=== PATIENT | female | born 1955 | race Caucasian/White ===

== ENCOUNTER 2021-07-18 19:21 | Inpatient (IN) ==
[2021-07-18] MEDS ORDERED: MAGNESIUM SULFATE 8.12 MEQ/2 ML VIAL IV ONE (19:52)
--- NOTE | 2021-07-18 20:06 | Emergency Department Note ---
HPI General Chief complaint: Weakness Stated complaint: weakness Time Seen by Provider: 07/18/21 19:50 Source: patient Mode of arrival: wheelchair Limitations: no limitations History of Present Illness HPI Narrative: Narrative: 66-year-old female history of chronic alcohol dependence, CHF, paroxysmal A. fib, type 2 diabetes, hypertension hyperlipidemia presenting to the ED feeling tremulous and anxious. Her home health aide was concerned that she might be in A. fib again. Patient denies any chest pain. Does get occasional palpitations. No shortness of breath. She is a daily drinker. She says she drinks 2 "tall boys" of beer a day. The last 2 to 3 days she has drank less than her typical amount, most recent drink was this morning she had just a little more than 1. She feels anxious and shaky. She says her appetite has been down and she really has not ate or drank anything for the last couple days. Feels like her previous alcohol withdrawal. Has nausea no vomiting. She has no fevers, no URI symptoms, no chest pain, no abdominal pain no urinary symptoms no other complaints. Related Data Home Medications Medication Instructions Recorded Confirmed atorvastatin 20 mg tablet 20 mg PO QDAY 10/17/17 07/18/21 ipratropium 20 mcg-albuterol 100 2 puff INHALATION BID g 10/17/17 07/19/20 mcg/actuation mist for inhalation (Combivent Respimat) buspirone 7.5 mg tablet 7.5 mg PO BID 07/18/21 07/18/21 diltiazem HCl 240 mg 240 mg PO QDAY 07/18/21 07/18/21 capsule,extended release 24 hr duloxetine 60 mg capsule,delayed 60 mg PO QDAY 07/18/21 07/18/21 release gabapentin 300 mg capsule 300 mg PO QDAY 07/18/21 07/18/21 metoprolol succinate 25 mg 25 mg PO QDAY 07/18/21 07/18/21 tablet,extended release 24 hr pantoprazole 40 mg tablet,delayed 40 mg PO QDAY 07/18/21 07/18/21 release potassium chloride 10 mEq 10 meq PO QDAY 07/18/21 07/18/21 tablet,extended release Allergies Allergy/AdvReac Type Severity Reaction Status Date / Time Penicillins Allergy Severe Hives, Verified 07/18/21 19:26 facial swelling Amoxicillin Allergy Unknown Unknown Verified 07/18/21 19:26 Review of Systems ROS ROS Narrative: Narrative: All systems ED: reviewed and negative except as stated. [facility] Narrative Patient History Narrative: Narrative: Medical/Surgical/Family History All Active Problems Alcohol withdrawal (Acute) Acute hyponatremia (Acute) Electrolyte disturbance (Acute) Prolonged QT interval (Acute) Acute dehydration (Acute) Weakness (Acute) Alcoholic intoxication (Acute) Asterixis (Chronic) Tachycardia (Chronic) Loose bowel movements (Chronic) Irritable (Chronic) Shaking (Chronic) Hyperabduction syndrome (Chronic) History of skin cancer (Chronic) Actinic keratosis (Chronic) Fracture, ribs (Chronic) Diarrhea (Chronic) Edema (Chronic) Congenital malposition of subclavian artery (Chronic) Steatosis of liver (Chronic) CHF (congestive heart failure) (Chronic) Atrial fibrillation (Chronic) Mitral valve regurgitation (Chronic) Nicotine dependence (Chronic) Vitamin D deficiency (Chronic) Goiter (Chronic) Alcohol abuse (Chronic) Deltoid tendonitis (Chronic) Brachial neuritis (Chronic) Fatigue (Chronic) Anxiety (Chronic) Environmental allergies (Chronic) Dyspnea on exertion (Chronic) Chronic osteoarthritis (Chronic) Asthma (Chronic) Raynaud's phenomenon (Chronic) Essential hypertension (Chronic) Hyperlipidemia (Chronic) Type 2 diabetes mellitus without complication (Chronic) Hypothyroidism (Chronic) Squamous cell carcinoma of skin (Chronic) Medical History Actinic keratosis Alcohol abuse Anxiety Asterixis Asthma Atrial fibrillation Brachial neuritis shoulder injury CHF (congestive heart failure) Chronic osteoarthritis Congenital malposition of subclavian artery Deltoid tendonitis Diarrhea Dyspnea on exertion Edema Environmental allergies Essential hypertension Fatigue Fracture, ribs Goiter 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 Hyperlipidemia Hypothyroidism Irritable Loose bowel movements Mitral valve regurgitation Nicotine dependence Raynaud's phenomenon Shaking Squamous cell carcinoma of skin Steatosis of liver Tachycardia Type 2 diabetes mellitus without complication Vitamin D deficiency Surgical History History of cholecystectomy History of hysterectomy (~03/05/19) History of shoulder surgery History of tonsillectomy Family History Mother Migraine Sister Migraine Social History Smoking Status: Current every day smoker Alcohol Intake Frequency: 0-2 drinks per day Substance Use: does not use Exam Narrative Narrative: Narrative: Constitutional: normally developed, anxious tremulous Head: Normocephalic, atraumatic, Eyes: No Icterus, ENT: Dry mucus membranes, Neck: Supple, Cardiac: Tachycardic regular heart sounds, palpable radial pulses, no peripheral edema Pulmonary: Normal respiratory effort. Breath sounds clear, no wheeze, rhonchi, rales, Gastrointestinal: Abdomen soft, non-distended, non-tender, Musculoskeletal: No gross deformities, well perfused Skin: warm, dry Neuro: Alert and oriented, patient has mild tongue fasciculations, she is tremulous appearing. She is not disoriented no seizure-like activity no focal deficits General Limitations: no limitations Course Vital Signs Vital signs: Vital Signs Temperature 36.7 C 07/18/21 19:23 Pulse Rate 110 H 07/18/21 19:23 Respiratory Rate 17 07/18/21 19:23 Blood Pressure 111/66 07/18/21 19:23 Pulse Oximetry (%) 92 07/18/21 19:23 Temperature 37.1 C 07/19/21 00:01 Pulse Rate 95 H 07/19/21 00:01 Respiratory Rate 25 H 07/19/21 00:01 Blood Pressure 105/52 07/19/21 00:01 Pulse Oximetry (%) 92 07/19/21 00:01 [facility] MDM Narrative Medical decision making narrative: Narrative: Patient sent in for tremulousness and some tachycardia, the home health aide that stopped by thought perhaps she might be in A. fib. On my examination she is tremulous and appears to be in some alcohol withdrawal, she is oriented, she is tachycardic but it is sinus on the monitor. She appears dry, work-up is initiated initially given some IV fluids. Given IV Ativan 1 mg. Given thiamine, folic acid Twelve-lead EKG sinus tachycardia 104 no evidence of afib, no STEMI criteria. Does have nonspecific repolarization abnormalities and does have a prolonged QTC calculated at 523. I am suspicious for electrolyte disturbance. Given prolonged QT did give her some IV mag sulfate, labs pending Reevaluation tachycardia slowly improving and tremors improving we will give her 1 more milligram Ativan CBC no leukocytosis no anemia Electrolytes show a hyponatremia hypochloremia hypokalemia, normal renal function magnesium 2.1 Ethanol slightly elevated 0.028 Troponin negative Chest x-ray per my preliminary interpretation no obvious acute abnormalities [id number] urine negative for infection Reevaluation presentation consistent with some alcohol withdrawal as well as multiple electrolyte derangements, along with a prolonged QTC and also appears dehydrated. Did switch her from LR to some slow normal saline once lytes resulted. Will speak with hospitalist for admission. Lab Data Result diagrams: 07/18/21 20:42 07/18/21 20:01 Labs: Lab Results 07/18/21 07/18/21 07/18/21 Range/Units 20:01 20:01 20:01 WBC TNP RBC TNP Hgb TNP Hct TNP MCV TNP MCH TNP MCHC TNP RDW TNP Plt Count TNP MPV TNP Neut % (Auto) TNP Lymph % (Auto) TNP [place] % (Auto) TNP Eos % (Auto) TNP Baso % (Auto) TNP Lymph # (Auto) TNP [place] # (Auto) TNP Eos # (Auto) TNP Baso # (Auto) TNP Absolute Neutrophils TNP Differential Comment TNP Sodium 122 L (133-145) mmol/L Potassium 3.2 L (3.3-5.1) mmol/L Chloride 79 L (96-108) mmol/L Carbon Dioxide 28 (22-30) mmol/L Anion Gap 15.0 (8.0-16.0) BUN 7 L (8-23) mg/dL Creatinine 0.4 L (0.6-1.1) mg/dL GFR Calculation 109 Glucose 103 (70-105) mg/dL Calcium 8.8 (8.6-10.4) mg/dL Magnesium 2.1 (1.6-2.5) mg/dL Ethyl Alcohol 0.028 H (<0.010) gm/dL POC Troponin I (0.02-0.08) 07/18/21 07/18/21 Range/Units 20:05 20:42 WBC 6.9 RBC 4.00 Hgb 13.8 Hct 39.5 MCV 98.8 MCH 34.5 H MCHC 34.9 RDW 13.4 Plt Count 252 MPV 9.2 Neut % (Auto) 72.3 Lymph % (Auto) 13.9 L [place] % (Auto) 13.4 H Eos % (Auto) 0.1 Baso % (Auto) 0.3 Lymph # (Auto) 0.96 L [place] # (Auto) 0.93 H Eos # (Auto) 0.01 Baso # (Auto) 0.02 Absolute Neutrophils 5.01 Differential Comment Sodium (133-145) mmol/L Potassium (3.3-5.1) mmol/L Chloride (96-108) mmol/L Carbon Dioxide (22-30) mmol/L Anion Gap (8.0-16.0) BUN (8-23) mg/dL Creatinine (0.6-1.1) mg/dL GFR Calculation Glucose (70-105) mg/dL Calcium (8.6-10.4) mg/dL Magnesium (1.6-2.5) mg/dL Ethyl Alcohol (<0.010) gm/dL POC Troponin I 0.02 (0.02-0.08) ED POC Tests ED POC Tests: SHIV - SARS Antigen Negative Discharge Plan Patient/Caregiver Discharge Instructions Pt seen by TELEGRAPHER AGENT/PA only: No Clinical Impression: Alcohol withdrawal, Acute hyponatremia, Electrolyte disturbance, Prolonged QT interval, Acute dehydration Patient Disposition: Xfer As Inpt ([facility]) Condition: Fair Discharge Date/Time: 07/18/21 22:43
[2021-07-18] MEDS ORDERED: MAGNESIUM SULFATE 8.12 MEQ in DEXTROSE 5% IN WATER 50 ML IV ONE (20:11)
[2021-07-18 20:50] LABS: Alcohol,Blood 0.028 gm/dL (<0.010)
[2021-07-18] MEDS ORDERED: FOLIC ACID 1 MG TABLET PO ONE (21:00)
[2021-07-18] MEDS ORDERED: THIAMINE 100 MG/ML VIAL IM ONE (21:00)
[2021-07-18 21:01] LABS: Blood Urea Nitrogen 7 mg/dL (8-23); Calcium 8.8 mg/dL (8.6-10.4); Carbon Dioxide 28 mmol/L (22-30); Chloride 79 mmol/L (96-108); Glomerular Filtration Rate 109; Glucose 103 mg/dL (70-105)
[2021-07-18] MEDS ORDERED: LACTATED RINGERS 1,000 ML IV ONE (21:01)
[2021-07-18] MEDS ORDERED: LORazepam 2 MG/ML VIAL IV ONE ×2 (21:01→21:40)
[2021-07-18 21:10] LABS: Basophils # (Auto) 0.02 K/mcL (0.00-0.30); Basophils % (Auto) 0.3 % (0.0-2.0); Eosinophils # (Auto) 0.01 K/mcL (0.00-0.70); Eosinophils % (Auto) 0.1 % (0.0-7.0); Hematocrit 39.5 % (34.1-44.9); Hemoglobin 13.8 g/dL (11.2-15.7); Lymphocytes # (Auto) 0.96 K/mcL (1.50-4.80); Lymphocytes % (Auto) 13.9 % (15.5-49.0); Mean Cell Volume 98.8 fL (80.0-100.0); Mean Corpuscular HGB Conc 34.9 g/dL (31.0-36.0); Mean Platelet Volume 9.2 fL (7.4-10.4); Monocytes # (Auto) 0.93 K/mcL (0.10-0.90); Monocytes % (Auto) 13.4 % (1.0-12.0); Neutrophils % (Auto) 72.3 % (38.0-78.0); Platelet Count 252 K/mcL (140-440); Red Cell Distribution Width 13.4 % (11.5-14.5); WBC 6.9 K/mcL (4.5-11.0)
[2021-07-18] MEDS ORDERED: THIAMINE 100 MG in 0.9 % SODIUM CHLORIDE 50 ML IV ONE (21:23)
[2021-07-18] MEDS ORDERED: POTASSIUM CHLORIDE 20 MEQ TABLET PO ONE (21:32)
[2021-07-18] MEDS ORDERED: 0.9 % SODIUM CHLORIDE 500 ML IV ONE (21:39)
--- NOTE | 2021-07-18 22:19 | Internal Med History&Physical ---
HPI History of Present Illness Patient information: Note initiated : 07/18/21 at 10:14 pm Service Date, if different from initiated Date: [as above] Patient: Arya Mercado a 66 y/o F admitted on for weakness. Chief Complaint: [Weakness, ALOC] Chief complaint: Weakness, tremors History of present illness: Ms. Mercado is a 66 year old F with a past medical history significant for EtOH abuse, hypertension, hyperlipidemia, neuropathy who presents to the hospital with generalized weakness in the setting of alcoholism. The patient's niece was at the bedside to give the majority of the history. The patient was somnolent, tremulous, and has not been eating or drinking. She is quite debilitated and there is concerns for failure to thrive. On arrival, she was hemodynamically stable and afebrile. Labs revealed a sodium of 122, K of 3.2, AST of 173, and ALT of 87. Blood alcohol level was 0.028. The patient was hospitalized for further management and evaluation of her electrolyte derangements and the possibility of alcohol withdrawal. It is unclear at this time whether patient has intentions of alcohol cessation. Review of Systems ROS unobtainable: due to mental status PFSH PFSH All Active Problems Alcohol withdrawal (Acute) Acute hyponatremia (Acute) Electrolyte disturbance (Acute) Prolonged QT interval (Acute) Acute dehydration (Acute) Weakness (Acute) Alcoholic intoxication (Acute) Asterixis (Chronic) Tachycardia (Chronic) Loose bowel movements (Chronic) Irritable (Chronic) Shaking (Chronic) Hyperabduction syndrome (Chronic) History of skin cancer (Chronic) Actinic keratosis (Chronic) Fracture, ribs (Chronic) Diarrhea (Chronic) Edema (Chronic) Congenital malposition of subclavian artery (Chronic) Steatosis of liver (Chronic) CHF (congestive heart failure) (Chronic) Atrial fibrillation (Chronic) Mitral valve regurgitation (Chronic) Nicotine dependence (Chronic) Vitamin D deficiency (Chronic) Goiter (Chronic) Alcohol abuse (Chronic) Deltoid tendonitis (Chronic) Brachial neuritis (Chronic) Fatigue (Chronic) Anxiety (Chronic) Environmental allergies (Chronic) Dyspnea on exertion (Chronic) Chronic osteoarthritis (Chronic) Asthma (Chronic) Raynaud's phenomenon (Chronic) Essential hypertension (Chronic) Hyperlipidemia (Chronic) Type 2 diabetes mellitus without complication (Chronic) Hypothyroidism (Chronic) Squamous cell carcinoma of skin (Chronic) Medical History Actinic keratosis Alcohol abuse Anxiety Asterixis Asthma Atrial fibrillation Brachial neuritis shoulder injury CHF (congestive heart failure) Chronic osteoarthritis Congenital malposition of subclavian artery Deltoid tendonitis Diarrhea Dyspnea on exertion Edema Environmental allergies Essential hypertension Fatigue Fracture, ribs Goiter 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 Hyperlipidemia Hypothyroidism Irritable Loose bowel movements Mitral valve regurgitation Nicotine dependence Raynaud's phenomenon Shaking Squamous cell carcinoma of skin Steatosis of liver Tachycardia Type 2 diabetes mellitus without complication Vitamin D deficiency Surgical History History of cholecystectomy History of hysterectomy (~03/05/19) History of shoulder surgery History of tonsillectomy Family History Mother Migraine Sister Migraine Social History household members: other details: Elderly mother, brother marital status: single occupational status: retired smoking status: Current every day smoker tobacco type: cigarettes per day: 20 p ack-years: 51 alcohol intake frequency: 0-2 drinks per day substance use type: does not use MEDS/ALLERGIES Home Medications and Allergies Home Medications Medication Instructions Recorded Confirmed Type atorvastatin 20 mg tablet 20 mg PO QDAY 10/17/17 07/18/21 History ipratropium 20 mcg-albuterol 100 2 puff INHALATION BID g 10/17/17 07/19/20 History mcg/actuation mist for inhalation (Combivent Respimat) buspirone 7.5 mg tablet 7.5 mg PO BID 07/18/21 07/18/21 History diltiazem HCl 240 mg 240 mg PO QDAY 07/18/21 07/18/21 History capsule,extended release 24 hr duloxetine 60 mg capsule,delayed 60 mg PO QDAY 07/18/21 07/18/21 History release gabapentin 300 mg capsule 300 mg PO QDAY 07/18/21 07/18/21 History metoprolol succinate 25 mg 25 mg PO QDAY 07/18/21 07/18/21 History tablet,extended release 24 hr pantoprazole 40 mg tablet,delayed 40 mg PO QDAY 07/18/21 07/18/21 History release potassium chloride 10 mEq 10 meq PO QDAY 07/18/21 07/18/21 History tablet,extended release Allergies Allergy/AdvReac Type Severity Reaction Status Date / Time Penicillins Allergy Severe Hives, Verified 07/18/21 19:26 facial swelling Amoxicillin Allergy Unknown Unknown Verified 07/18/21 19:26 EXAM Constitutional Vitals: Temp Pulse Resp BP Pulse Ox 98.1 F 100 H 21 129/63 94 07/18/21 19:23 07/18/21 21:46 07/18/21 22:01 07/18/21 22:01 07/18/21 21:46 General appearance: average body habitus Head Head exam: Present atraumatic, normal inspection and normocephalic Eye Eye exam: Present EOMI, normal appearance and PERRL; Absent conjunctival injection ENT ENT exam: Present normal exam; Absent mucous membranes dry Neck Neck exam: Present full ROM; Absent lymphadenopathy Respiratory Respiratory exam: Present normal respiratory exam and CTAB; Absent decreased breath sounds, respiratory distress or wheezes Cardiovascular Cardiovascular exam: Present RRR and tachycardia; Absent normal rate and rhythm or JVD GI/Abdominal GI/Abdominal exam: Present normal bowel sounds and soft; Absent diminished bowel sounds, distended, guarding, mass, rebound or tenderness Neurological Exam Neurological exam: Present alert, CN II-XII intact and oriented X3 Psychiatric Psychiatric exam: Present normal affect and normal mood Skin Skin exam: Present intact and warm; Absent erythema, pallor, petechiae or rash DATA Data Completed and Pending Labs: Labs from last 24 hours 07/18/21 07/18/21 07/18/21 20:42 20:05 20:01 WBC 6.9 RBC 4.00 Hgb 13.8 Hct 39.5 MCV 98.8 MCH 34.5 H MCHC 34.9 RDW 13.4 Plt Count 252 MPV 9.2 Neut % (Auto) 72.3 Lymph % (Auto) 13.9 L [place] % (Auto) 13.4 H Eos % (Auto) 0.1 Baso % (Auto) 0.3 Lymph # (Auto) 0.96 L [place] # (Auto) 0.93 H Eos # (Auto) 0.01 Baso # (Auto) 0.02 Absolute Neutrophils 5.01 Differential Comment Sodium Potassium Chloride Carbon Dioxide Anion Gap BUN Creatinine GFR Calculation Glucose Calcium Magnesium Ethyl Alcohol 0.028 H POC Troponin I 0.02 07/18/21 07/18/21 20:01 20:01 WBC TNP RBC TNP Hgb TNP Hct TNP MCV TNP MCH TNP MCHC TNP RDW TNP Plt Count TNP MPV TNP Neut % (Auto) TNP Lymph % (Auto) TNP [place] % (Auto) TNP Eos % (Auto) TNP Baso % (Auto) TNP Lymph # (Auto) TNP [place] # (Auto) TNP Eos # (Auto) TNP Baso # (Auto) TNP Absolute Neutrophils TNP Differential Comment TNP Sodium 122 L Potassium 3.2 L Chloride 79 L Carbon Dioxide 28 Anion Gap 15.0 BUN 7 L Creatinine 0.4 L GFR Calculation 109 Glucose 103 Calcium 8.8 Magnesium 2.1 Ethyl Alcohol POC Troponin I A/P Assessment and plan (1) Alcohol withdrawal: Status: Acute (2) Acute hyponatremia: Status: Acute (3) Electrolyte disturbance: Status: Acute (4) Prolonged QT interval: Status: Acute (5) Acute dehydration: Status: Acute (6) Weakness: Status: Acute (7) Steatosis of liver: Status: Chronic Narrative A/P Narrative: The patient will be started on intravenous fluids for her hypovolemic hyponatremia and her potassium will be replaced. This is likely in the setting of beer potomania. The patient's alcohol withdrawal will be managed by standard [facility] protocol. Social work will be consulted in the morning for chemical dependency counseling. Medication reconciliation is pending. In the setting of altered mental status, her duloxetine and gabapentin will be held. Social work and case management will work on disposition as well. Time Spent With Patient Time: Total time spent is greater than 50% in coordination of care (as documented) at patient's floor/unit and/or counseling patient: Total time spent with greater than 50% in coordination of care (as documented) at patient's floor/unit and/or counseling patient:: 50 - 70 minutes
[2021-07-18] MEDS: 0.9 % SODIUM CHLORIDE 1,000 ML IV SCH (23:16)
[2021-07-18] MEDS: 0.9 % SODIUM CHLORIDE 10 ML SYRINGE IV SCH (23:17)
--- NOTE | 2021-07-19 04:25 | XRay Report ---
CLINICAL INFORMATION: Weakness. History of smoking COMPARISON: None. TECHNIQUE: PA and Lateral views FINDINGS: The heart size, mediastinum and pulmonary vessels are unremarkable. The lung volumes are elevated is mild wall thickening the central bronchi suggesting chronic bronchitis related to smoking. Minor bibasilar atelectasis noted. No infiltrates There are no effusions. The bones and soft tissues are within normal limits. IMPRESSION: Chronic bronchitis.. Minor bibasilar atelectasis Interpreted and Authenticated by: Fernando Reyes 07/19/21
[2021-07-19] MEDS: 0.9 % SODIUM CHLORIDE 10 ML SYRINGE IV SCH ×3 (06:07→20:44)
[2021-07-19] MEDS: 0.9 % SODIUM CHLORIDE 1,000 ML IV SCH ×4 (06:07→16:27)
--- NOTE | 2021-07-19 06:16 | Internal Med Progress Note ---
SUBJECTIVE Subjective Patient information: Note initiated : 07/19/21 at 6:14 am Service Date, if different from initiated Date: [as above] Patient: Arya Mercado 66 y/o F admitted on 07/18/21 for weakness. Chief Complaint: [ALOC, weakness] Principal diagnosis: HypoNa, EtOH withdrawal Interval history: The patient was admitted last night, and she is somewhat confused and somnolent this AM. Constitutional Vitals: Vital Signs Temp Pulse Resp BP Pulse Ox 97.7 F 104 H 19 126/68 97 07/19/21 04:01 07/19/21 04:01 07/19/21 04:01 07/19/21 04:01 07/19/21 04:01 Period Temp Pulse Resp BP Sys/Babin Pulse Ox Last 24 Hr 97.7 F-98.7 F 95-123 17-26 105-144/52-84 90-97 Intake and Output 07/18/21 07/19/21 07/19/21 21:59 05:59 13:59 Intake Total 203 250 Output Total 1 Balance 203 249 Weight 74.389 kg 74.389 kg Intake & Output: Intake & Output 07/18/21 07/19/21 07/19/21 21:59 05:59 13:59 Intake Total 203 250 Output Total 1 Balance 203 249 Weight 74.389 kg 74.389 kg Intake: IV 203 250 Sodium Chloride 0.9% 500 ml @ 250 Wide Open IV BOLUS ONE Rx#: [id number] Lactated Ringers 1,000 ml @ 100 Wide Open IV BOLUS ONE Rx#: [id number] Magnesium Sulfate 8.12 Meq In 52 Dextrose 5% in Water 50 ml @ 52 mls/hr IV ONCE ONE Rx#: [id number] Vitamin B1 100 mg In Sodium 51 Chloride 0.9% 50 ml @ 50 mls/hr IV ONCE ONE Rx#:[id number] Output: # of times incontinent of urine 1 Head Head exam: Present atraumatic and normal inspection Eye Eye exam: Present normal appearance ENT ENT exam: Present mucous membranes moist, normal exam and normal external ear exam Neck Neck exam: Present normal inspection Respiratory Respiratory exam: Present normal respiratory exam Cardiovascular Cardiovascular exam: Present normal rate and rhythm GI/Abdominal GI/Abdominal exam: Present normal bowel sounds Back Exam Back exam: Present normal inspection Neurological Exam Neurological exam: Present alert and altered Skin Skin exam: Present intact and warm OBJ DATA Labs CBC & Chem 7: 07/18/21 20:42 07/18/21 20:01 Labs: Abnormal Lab Results 07/18/21 07/18/21 07/18/21 20:42 20:01 20:01 MCH 34.5 H Lymph % (Auto) 13.9 L [place] % (Auto) 13.4 H Lymph # (Auto) 0.96 L [place] # (Auto) 0.93 H Sodium 122 L Potassium 3.2 L Chloride 79 L BUN 7 L Creatinine 0.4 L Ethyl Alcohol 0.028 H Meds: Medications Docusate Sodium (Docusate Sodium 100 Mg Capsule) 100 mg PO BID DEMIAN Enoxaparin Sodium (Enoxaparin 40 Mg/0.4 Ml Syringe) 40 mg SQ DAILY DEMIAN Sodium Chloride (Sodium Chloride 0.9%) 1,000 mls @ 125 mls/hr IV .Q8H [facility] Last Admin: 07/19/21 06:07 Dose: Not Given Documented by: Lorazepam (Lorazepam 2 Mg/Ml Vial) 0 mg IV Q2-4HP PRN; Protocol PRN Reason: Alcohol Withdrawal Senna (Sennosides 1 Tablet) 2 tab PO HS DEMIAN Sodium Chloride (0.9 % Sodium Chloride 10 Ml Syringe) 10 ml IV Q8 [facility] Last Admin: 07/19/21 06:07 Dose: 10 ml Documented by: A/P Assessment and plan (1) Alcohol withdrawal: Status: Acute (2) Acute hyponatremia: Status: Acute (3) Electrolyte disturbance: Status: Acute (4) Prolonged QT interval: Status: Acute (5) Acute dehydration: Status: Acute (6) Weakness: Status: Acute (7) Steatosis of liver: Status: Chronic Narrative A/P Narrative: The patient will be started on intravenous fluids for her hypovolemic hyponatremia and her potassium will be replaced. This is likely in the setting of beer potomania. The patient's alcohol withdrawal will be managed by standard [facility] protocol. Social work will be consulted in the morning for chemical dependency counseling. Medication reconciliation is pending. In the setting of altered mental status, her duloxetine and gabapentin will be held. Social work and case management will work on disposition as well. 07/19: BMP is pending. Continue IVF and CIWA protocol at this time. SW for CD counseling. SW/CM will work on dispo in the coming days. Time Spent With Patient Time: Total time spent is greater than 50% in coordination of care (as documented) at patient's floor/unit and/or counseling patient: Total time spent with greater than 50% in coordination of care (as documented) at patient's floor/unit and/or counseling patient:: 25 - 35 minutes
[2021-07-19 07:59] LABS: Blood Urea Nitrogen 5 mg/dL (8-23); Calcium 7.9 mg/dL (8.6-10.4); Carbon Dioxide 29 mmol/L (22-30); Chloride 89 mmol/L (96-108); Glomerular Filtration Rate 137; Glucose 96 mg/dL (70-105)
[2021-07-19] MEDS ORDERED: POTASSIUM CHLORIDE 20 MEQ TABLET PO ONE ×2 (08:00→12:00)
[2021-07-19] MEDS: DOCUSATE SODIUM 100 MG CAPSULE PO SCH ×2 (09:06→20:43)
[2021-07-19] MEDS: ENOXAPARIN 40 MG/0.4 ML SYRINGE SQ SCH (09:18)
[2021-07-19] MEDS: LORazepam 2 MG/ML VIAL IV PRN ×2 (13:22→20:53)
--- NOTE | 2021-07-19 13:22 | Internal Med Progress Note ---
SUBJECTIVE Subjective Patient information: Note initiated : 07/19/21 at 1:18 pm Service Date, if different from initiated Date: [] Patient: Arya Mercado a 66 y/o F admitted on 07/18/21 for weakness. Chief Complaint: [] Principal diagnosis: HypoNa, EtOH withdrawal Interval history: History of present illness: Ms. Mercado is a 66 year old F with a past medical history significant for EtOH abuse, hypertension, hyperlipidemia, neuropathy who presents to the hospital with generalized weakness in the setting of alcoholism. The patient's niece was at the bedside to give the majority of the history. The patient was somnolent, tremulous, and has not been eating or drinking. She is quite debilitated and there is concerns for failure to thrive. On arrival, she was hemodynamically stable and afebrile. Labs revealed a sodium of 122, K of 3.2, AST of 173, and ALT of 87. Blood alcohol level was 0.028. The patient was hospitalized for further management and evaluation of her electrolyte derangements and the possibility of alcohol withdrawal. It is unclear at this time whether patient has intentions of alcohol cessation. 07/19 The patient was admitted last night, and she is somewhat confused and somnolent this AM. 07/20 Constitutional Vitals: Vital Signs Temp Pulse Resp BP Pulse Ox 99.1 F H 104 H 23 H 117/65 93 07/19/21 11:57 07/19/21 04:01 07/19/21 11:57 07/19/21 11:57 07/19/21 11:57 Period Temp Pulse Resp BP Sys/Babin Pulse Ox Last 24 Hr 97.7 F-99.1 F 95-123 17-26 105-144/52-84 90-97 Intake and Output 07/18/21 07/19/21 07/19/21 21:59 05:59 13:59 Intake Total 183 761 9470 Output Total 1 2 Balance 073 977 6993 Weight 74.389 kg 74.389 kg Intake & Output: Intake & Output 07/18/21 07/19/21 07/19/21 21:59 05:59 13:59 Intake Total 718 839 0177 Output Total 1 2 Balance 169 870 9645 Weight 74.389 kg 74.389 kg Intake: IV 634 591 3362 Sodium Chloride 0.9% 1,000 ml @ 1612 125 mls/hr IV .Q8H [facility] Rx#: [id number] Sodium Chloride 0.9% 500 ml @ 250 Wide Open IV BOLUS ONE Rx#: [id number] Lactated Ringers 1,000 ml @ 100 Wide Open IV BOLUS ONE Rx#: [id number] Magnesium Sulfate 8.12 Meq In 52 Dextrose 5% in Water 50 ml @ 52 mls/hr IV ONCE ONE Rx#: [id number] Vitamin B1 100 mg In Sodium 51 Chloride 0.9% 50 ml @ 50 mls/hr IV ONCE ONE Rx#:[id number] Oral 1320 Output: # of times incontinent of urine 1 2 Other: Meal Breakfast Percent of Meal Consumed 100% Feeding Ability Independent Exam: General: Alert, Awake, No acute Distress Eyes/N/T: EOMI, Head/Neck: neck supple, CV: RRR, No murmurs, normal s1/s2 Pulm: Clear b/l, no wheezing/rhonchi/rales Abd: soft, nontender, +BS x4 Ext: no clubbing/cyanosis/edema Neuro: Alert, no focal deficits, moves all extremities, Skin: warm/dry OBJ DATA Labs CBC & Chem 7: 07/18/21 20:42 07/19/21 05:21 Labs: Abnormal Lab Results 07/19/21 07/18/21 07/18/21 05:21 20:42 20:01 MCH 34.5 H Lymph % (Auto) 13.9 L [place] % (Auto) 13.4 H Lymph # (Auto) 0.96 L [place] # (Auto) 0.93 H Sodium 129 L Potassium 2.7 L* Chloride 89 L BUN 5 L Creatinine 0.2 L Calcium 7.9 L Ethyl Alcohol 0.028 H 07/18/21 20:01 MCH Lymph % (Auto) [place] % (Auto) Lymph # (Auto) [place] # (Auto) Sodium 122 L Potassium 3.2 L Chloride 79 L BUN 7 L Creatinine 0.4 L Calcium Ethyl Alcohol Meds: Medications Buspirone HCl (Buspirone 5 Mg Tablet) 7.5 mg PO BID [facility] Diltiazem HCl (Diltiazem 240 Mg Cap.Xl.24h) 240 mg PO QDAY [facility] Docusate Sodium (Docusate Sodium 100 Mg Capsule) 100 mg PO BID [facility] Last Admin: 07/19/21 09:06 Dose: Not Given Documented by: Enoxaparin Sodium (Enoxaparin 40 Mg/0.4 Ml Syringe) 40 mg SQ DAILY [facility] Last Admin: 07/19/21 09:18 Dose: 40 mg Documented by: Gabapentin (Gabapentin 300 Mg Capsule) 300 mg PO QPM [facility] Sodium Chloride (Sodium Chloride 0.9%) 1,000 mls @ 125 mls/hr IV .Q8H [facility] Last Infusion: 07/19/21 13:17 Dose: 125 mls/hr Documented by: Lorazepam (Lorazepam 2 Mg/Ml Vial) 0 mg IV Q2-4HP PRN; Protocol PRN Reason: Alcohol Withdrawal Metoprolol Succinate (Metoprolol Succinate 25 Mg Tab.Xl.24h) 25 mg PO QPM [facility] Pantoprazole Sodium (Pantoprazole 40 Mg Tablet) 40 mg PO QDAY [facility] Senna (Sennosides 1 Tablet) 2 tab PO HS [facility] Sodium Chloride (0.9 % Sodium Chloride 10 Ml Syringe) 10 ml IV Q8 [facility] Last Admin: 07/19/21 06:07 Dose: 10 ml Documented by: A/P Narrative A/P Narrative: A: *Alcohol withdrawal: *Alcohol abuse: *Acute hyponatremia: 2/2 above *Electrolyte d/o: 2/2 above *Acute dehydration: *Generalized weakness: *h/o PITT: 2/2 above *Anxiety/depression: *HTN/HLD: *GERD: * P: -CIWA, vitamins, benzo -Replete electrolytes -f/u sodium -IVF -Hold home Lasix for now -Continue home CBB/BB - -Alcohol cessation counseling -CM for placement needs -ppx: lovenox /Home PPI Time Spent With Patient Time: Total time spent is greater than 50% in coordination of care (as documented) at patient's floor/unit and/or counseling patient:
[2021-07-19] MEDS: MULTIVIT,THER IRON,CA,FA & MIN 1 TABLET PO SCH (13:30)
[2021-07-19] MEDS: THIAMINE 100 MG TABLET PO SCH (13:30)
[2021-07-19 18:02] LABS: Blood Urea Nitrogen 6 mg/dL (8-23); Calcium 7.7 mg/dL (8.6-10.4); Carbon Dioxide 28 mmol/L (22-30); Chloride 96 mmol/L (96-108); Glomerular Filtration Rate 120; Glucose 99 mg/dL (70-105)
[2021-07-19] MEDS: busPIRone 5 MG TABLET PO SCH (20:43)
[2021-07-19] MEDS: GABAPENTIN 300 MG CAPSULE PO SCH (20:43)
[2021-07-19] MEDS: SENNOSIDES 1 TABLET PO SCH (20:43)
[2021-07-19] MEDS: METOPROLOL SUCCINATE 25 MG TAB.XL.24H PO SCH (20:44)
[2021-07-20] MEDS: 0.9 % SODIUM CHLORIDE 1,000 ML IV SCH ×2 (00:12→08:34)
[2021-07-20] MEDS: 0.9 % SODIUM CHLORIDE 10 ML SYRINGE IV SCH ×3 (05:11→20:35)
[2021-07-20 06:50] LABS: INR 0.8 (0.9-1.1); Prothrombin Time 11.8 sec (11.9-14.5)
[2021-07-20 07:11] LABS: ALT/SGPT 29 U/L (<40); AST/SGOT 35 U/L (<32); Albumin 2.4 gm/dL (3.2-5.2); Alkaline Phosphatase 291 U/L (39-117); Bilirubin,Direct < 0.2 mg/dL (0-0.3); Bilirubin,Total 0.3 mg/dL (0.1-1.0); Blood Urea Nitrogen 5 mg/dL (8-23); Calcium 7.9 mg/dL (8.6-10.4); Carbon Dioxide 26 mmol/L (22-30); Chloride 100 mmol/L (96-108); Globulin 2.4 gm/dL (2.2-3.7); Glomerular Filtration Rate 120; Glucose 98 mg/dL (70-105); Lactate Dehydrogenase 253 U/L (135-225); Phosphorous 3.2 mg/dL (2.5-4.5); Triglycerides 72 mg/dL (<150); Uric Acid 3.4 mg/dL (2.5-8.0)
[2021-07-20] MEDS: ENOXAPARIN 40 MG/0.4 ML SYRINGE SQ SCH (07:47)
[2021-07-20] MEDS: busPIRone 5 MG TABLET PO SCH ×2 (07:48→20:34)
[2021-07-20] MEDS: THIAMINE 100 MG TABLET PO SCH (07:48)
[2021-07-20] MEDS: DOCUSATE SODIUM 100 MG CAPSULE PO SCH ×2 (07:48→20:30)
[2021-07-20] MEDS: DILTIAZEM 240 MG CAP.XL.24H PO SCH (07:48)
[2021-07-20] MEDS: FOLIC ACID 1 MG TABLET PO SCH (07:48)
[2021-07-20] MEDS: MULTIVIT,THER IRON,CA,FA & MIN 1 TABLET PO SCH (07:48)
[2021-07-20] MEDS: PANTOPRAZOLE 40 MG TABLET PO SCH (07:48)
--- NOTE | 2021-07-20 08:14 | Internal Med Progress Note ---
SUBJECTIVE Subjective Patient information: Note initiated : 07/20/21 at 8:10 am Service Date, if different from initiated Date: [] Patient: Arya Mercado 66 y/o F admitted on 07/18/21 for weakness. Chief Complaint: [] Principal diagnosis: HypoNa, EtOH withdrawal Interval history: History of present illness: Ms. Mercado is a 66 year old F with a past medical history significant for EtOH abuse, hypertension, hyperlipidemia, neuropathy who presents to the hospital with generalized weakness in the setting of alcoholism. The patient's niece was at the bedside to give the majority of the history. The patient was somnolent, tremulous, and has not been eating or drinking. She is quite debilitated and there is concerns for failure to thrive. On arrival, she was hemodynamically stable and afebrile. Labs revealed a sodium of 122, K of 3.2, AST of 173, and ALT of 87. Blood alcohol level was 0.028. The patient was hospitalized for further management and evaluation of her electrolyte derangements and the possibility of alcohol withdrawal. It is unclear at this time whether patient has intentions of alcohol cessation. 07/19 The patient was admitted last night, and she is somewhat confused and somnolent this AM. 07/20 Patient did get IV Ativan last night and oral Librium this morning for alcohol withdrawal. Niece at bedside. Sodium improved. Review of Systems: denies headache/fever/chills/nausea/vomiting/chest or abdominal pain/cough/dyspnea/diarrhea. Otherwise see above. Constitutional Vitals: Vital Signs Temp Pulse Resp BP Pulse Ox 97.8 F 92 H 21 119/71 92 07/20/21 03:35 07/20/21 03:35 07/20/21 03:35 07/20/21 03:35 07/20/21 03:35 Period Temp Pulse Resp BP Sys/Babin Pulse Ox Last 24 Hr 97.8 F-99.5 F 92-115 16-24 117-140/63-83 92-95 Intake and Output 07/19/21 07/20/21 07/20/21 21:59 05:59 13:59 Intake Total 1567 2129 Output Total 1075 975 Balance 492 1154 Weight 74.446 kg Intake & Output: Intake & Output 07/19/21 07/20/21 07/20/21 21:59 05:59 13:59 Intake Total 1567 2129 Output Total 1075 975 Balance 492 1154 Weight 74.446 kg Intake: IV 367 969 Sodium Chloride 0.9% 1,000 ml @ 367 969 125 mls/hr IV .Q8H [facility] Rx#: [id number] Oral 1200 1160 Output: Urine Catheter Amount 950 525 Void Amount 125 450 Other: Meal Dinner Percent of Meal Consumed 100% Feeding Ability Independent Urine Appearance Cloudy Clear Urine Color Pale Bright Yellow Stool Size Large Stool Color Brown Stool Consistency Soft # Bowel Movements 1 Exam: General: Sleeping but awakens, No acute Distress Eyes/N/T: EOMI, Head/Neck: neck supple, CV: RRR, No murmurs, normal s1/s2 Pulm: Clear b/l, no wheezing/rhonchi/rales Abd: soft, nontender, +BS x4 Ext: no clubbing/cyanosis/edema Neuro: Drowsy from medical treatment but awakens and answers questions no focal deficits, moves all extremities, Skin: warm/dry OBJ DATA Labs CBC & Chem 7: 07/18/21 20:42 07/20/21 05:12 Labs: Abnormal Lab Results 07/20/21 07/20/21 07/19/21 05:12 05:12 17:10 MCH Lymph % (Auto) [place] % (Auto) Lymph # (Auto) [place] # (Auto) PT 11.8 L INR 0.8 L Sodium 129 L Potassium Chloride Anion Gap 5.0 L BUN 5 L 6 L Creatinine 0.3 L 0.3 L Calcium 7.9 L 7.7 L GGT 602 H AST 35 H Alkaline Phosphatase 291 H Lactate Dehydrogenase 253 H Total Protein 4.8 L Albumin 2.4 L Ethyl Alcohol 07/19/21 07/18/21 07/18/21 05:21 20:42 20:01 MCH 34.5 H Lymph % (Auto) 13.9 L [place] % (Auto) 13.4 H Lymph # (Auto) 0.96 L [place] # (Auto) 0.93 H PT INR Sodium 129 L Potassium 2.7 L* Chloride 89 L Anion Gap BUN 5 L Creatinine 0.2 L Calcium 7.9 L GGT AST Alkaline Phosphatase Lactate Dehydrogenase Total Protein Albumin Ethyl Alcohol 0.028 H 07/18/21 20:01 MCH Lymph % (Auto) [place] % (Auto) Lymph # (Auto) [place] # (Auto) PT INR Sodium 122 L Potassium 3.2 L Chloride 79 L Anion Gap BUN 7 L Creatinine 0.4 L Calcium GGT AST Alkaline Phosphatase Lactate Dehydrogenase Total Protein Albumin Ethyl Alcohol Meds: Medications Buspirone HCl (Buspirone 5 Mg Tablet) 7.5 mg PO BID [facility] Last Admin: 07/20/21 07:48 Dose: 7.5 mg Documented by: Diltiazem HCl (Diltiazem 240 Mg Cap.Xl.24h) 240 mg PO QDAY [facility] Last Admin: 07/20/21 07:48 Dose: 240 mg Documented by: Docusate Sodium (Docusate Sodium 100 Mg Capsule) 100 mg PO BID [facility] Last Admin: 07/20/21 07:48 Dose: Not Given Documented by: Enoxaparin Sodium (Enoxaparin 40 Mg/0.4 Ml Syringe) 40 mg SQ DAILY [facility] Last Admin: 07/20/21 07:47 Dose: 40 mg Documented by: Folic Acid (Folic Acid 1 Mg Tablet) 1 mg PO DAILY [facility] Last Admin: 07/20/21 07:48 Dose: 1 mg Documented by: Gabapentin (Gabapentin 300 Mg Capsule) 300 mg PO QPM [facility] Last Admin: 07/19/21 20:43 Dose: 300 mg Documented by: Sodium Chloride (Sodium Chloride 0.9%) 1,000 mls @ 125 mls/hr IV .Q8H [facility] Last Admin: 07/20/21 00:12 Dose: 125 mls/hr Documented by: Iron Carb/Multivit/[place]/Folic Acid (Multivit,Ther Iron,Ca,Fa & Min 1 Tablet) 1 tab PO DAILY [facility] Last Admin: 07/20/21 07:48 Dose: 1 tab Documented by: Lorazepam (Lorazepam 2 Mg/Ml Vial) 0 mg IV Q2-4HP PRN; Protocol PRN Reason: Alcohol Withdrawal Last Admin: 07/19/21 20:53 Dose: 1 mg Documented by: Metoprolol Succinate (Metoprolol Succinate 25 Mg Tab.Xl.24h) 25 mg PO QPM [facility] Last Admin: 07/19/21 20:44 Dose: 25 mg Documented by: Pantoprazole Sodium (Pantoprazole 40 Mg Tablet) 40 mg PO QDAY [facility] Last Admin: 07/20/21 07:48 Dose: 40 mg Documented by: Senna (Sennosides 1 Tablet) 2 tab PO HS [facility] Last Admin: 07/19/21 20:43 Dose: 2 tab Documented by: Sodium Chloride (0.9 % Sodium Chloride 10 Ml Syringe) 10 ml IV Q8 [facility] Last Admin: 07/20/21 05:11 Dose: Not Given Documented by: Thiamine HCl (Thiamine 100 Mg Tablet) 100 mg PO DAILY [facility] Last Admin: 07/20/21 07:48 Dose: 100 mg Documented by: A/P Narrative A/P Narrative: A: *Alcohol withdrawal: *Alcohol abuse: *Acute hyponatremia: 2/2 above, improved *Electrolyte d/o: 2/2 above *Acute dehydration: improved *Generalized weakness: *Fatty Liver: 2/2 above *Anxiety/depression: *HTN/HLD: *GERD: * P: -CIWA, vitamins, benzo -Replete electrolytes -f/u sodium -IVF d/c -Hold home Lasix for now -Continue home CBB/BB -CM for placement needs- -Alcohol cessation counseling -Referral to follow-up with Dr. Johnsno outpt -ppx: lovenox /Home PPI Time Spent With Patient Time: Total time spent is greater than 50% in coordination of care (as documented) at patient's floor/unit and/or counseling patient: Total time spent with greater than 50% in coordination of care (as documented) at patient's floor/unit and/or counseling patient:: 35 - 50 minutes
[2021-07-20] MEDS: chlordiazePOXIDE 25 MG CAPSULE PO PRN ×3 (08:36→21:24)
[2021-07-20] MEDS: SENNOSIDES 1 TABLET PO SCH (20:30)
[2021-07-20] MEDS: METOPROLOL SUCCINATE 25 MG TAB.XL.24H PO SCH (20:34)
[2021-07-20] MEDS: GABAPENTIN 300 MG CAPSULE PO SCH (20:34)
[2021-07-21] MEDS: chlordiazePOXIDE 25 MG CAPSULE PO PRN ×3 (04:31→21:45)
[2021-07-21] MEDS: 0.9 % SODIUM CHLORIDE 10 ML SYRINGE IV SCH ×3 (04:31→21:43)
--- NOTE | 2021-07-21 07:50 | Internal Med Progress Note ---
SUBJECTIVE Subjective Patient information: Note initiated : 07/21/21 at 7:50 am Service Date, if different from initiated Date: [] Patient: Arya Mercado 66 y/o F admitted on 07/18/21 for weakness. Chief Complaint: [] Principal diagnosis: HypoNa, EtOH withdrawal Interval history: History of present illness: Ms. Mercado is a 66 year old F with a past medical history significant for EtOH abuse, hypertension, hyperlipidemia, neuropathy who presents to the hospital with generalized weakness in the setting of alcoholism. The patient's niece was at the bedside to give the majority of the history. The patient was somnolent, tremulous, and has not been eating or drinking. She is quite debilitated and there is concerns for failure to thrive. On arrival, she was hemodynamically stable and afebrile. Labs revealed a sodium of 122, K of 3.2, AST of 173, and ALT of 87. Blood alcohol level was 0.028. The patient was hospitalized for further management and evaluation of her electrolyte derangements and the possibility of alcohol withdrawal. It is unclear at this time whether patient has intentions of alcohol cessation. 07/19 The patient was admitted last night, and she is somewhat confused and somnolent this AM. 07/20 Patient did get IV Ativan last night and oral Librium this morning for alcohol withdrawal. Niece at bedside. Sodium improved. 07/21 Patient doing better today. Does have cough. Is willing to follow-up with Dr. Johnson, needs SNF placement. Required Librium overnight for withdrawals. Review of Systems: denies headache/fever/chills/nausea/vomiting/chest or abdominal pain/dyspnea/diarrhea. Otherwise see above. Constitutional Vitals: Vital Signs Temp Pulse Resp BP Pulse Ox 97.3 F 82 20 111/73 96 07/21/21 03:21 07/21/21 03:21 07/21/21 03:21 07/21/21 03:21 07/21/21 03:21 Period Temp Pulse Resp BP Sys/Babin Pulse Ox Last 24 Hr 97.3 F-98.7 F 82-92 18-30 107-123/55-74 94-98 Intake and Output 07/20/21 07/21/21 07/21/21 21:59 05:59 13:59 Intake Total 960 576 Output Total 328 454 Balance 632 122 Weight 80.785 kg Intake & Output: Intake & Output 07/20/21 07/21/21 07/21/21 21:59 05:59 13:59 Intake Total 960 576 Output Total 328 454 Balance 632 122 Weight 80.785 kg Intake: Oral 960 576 Output: Void Amount 325 450 # of times incontinent of urine 3 4 Other: Meal Dinner snack Percent of Meal Consumed 100% 100% Feeding Ability Independent Urine Appearance Clear Clear Urine Color Pale Bright Yellow Urine Odor Normal Normal Stool Size Moderate Stool Color Brown Stool Consistency Liquid Loose # Voids 1 3 # Bowel Movements 1 Exam: General: awake, No acute Distress Eyes/N/T: EOMI, Head/Neck: neck supple, CV: RRR, No murmurs, normal s1/s2 Pulm: Clear b/l, no wheezing/rhonchi/rales Abd: soft, nontender, +BS x4 Ext: no clubbing/cyanosis/edema Neuro: Alert and no focal deficits , moves all extremities, Skin: warm/dry OBJ DATA Labs CBC & Chem 7: 07/18/21 20:42 07/20/21 05:12 Labs: Abnormal Lab Results 07/20/21 07/20/21 07/19/21 05:12 05:12 17:10 MCH Lymph % (Auto) [place] % (Auto) Lymph # (Auto) [place] # (Auto) PT 11.8 L INR 0.8 L Sodium 129 L Potassium Chloride Anion Gap 5.0 L BUN 5 L 6 L Creatinine 0.3 L 0.3 L Calcium 7.9 L 7.7 L GGT 602 H AST 35 H Alkaline Phosphatase 291 H Lactate Dehydrogenase 253 H Total Protein 4.8 L Albumin 2.4 L Ethyl Alcohol 07/19/21 07/18/21 07/18/21 05:21 20:42 20:01 MCH 34.5 H Lymph % (Auto) 13.9 L [place] % (Auto) 13.4 H Lymph # (Auto) 0.96 L [place] # (Auto) 0.93 H PT INR Sodium 129 L Potassium 2.7 L* Chloride 89 L Anion Gap BUN 5 L Creatinine 0.2 L Calcium 7.9 L GGT AST Alkaline Phosphatase Lactate Dehydrogenase Total Protein Albumin Ethyl Alcohol 0.028 H 07/18/21 20:01 MCH Lymph % (Auto) [place] % (Auto) Lymph # (Auto) [place] # (Auto) PT INR Sodium 122 L Potassium 3.2 L Chloride 79 L Anion Gap BUN 7 L Creatinine 0.4 L Calcium GGT AST Alkaline Phosphatase Lactate Dehydrogenase Total Protein Albumin Ethyl Alcohol Meds: Medications Buspirone HCl (Buspirone 5 Mg Tablet) 7.5 mg PO BID [facility] Last Admin: 07/20/21 20:34 Dose: 7.5 mg Documented by: Chlordiazepoxide HCl (Chlordiazepoxide 25 Mg Capsule) 25 mg PO Q6HP PRN PRN Reason: Alcohol Withdrawal Last Admin: 07/21/21 04:31 Dose: 25 mg Documented by: Diltiazem HCl (Diltiazem 240 Mg Cap.Xl.24h) 240 mg PO QDAY [facility] Last Admin: 07/20/21 07:48 Dose: 240 mg Documented by: Docusate Sodium (Docusate Sodium 100 Mg Capsule) 100 mg PO BID [facility] Last Admin: 07/20/21 20:30 Dose: Not Given Documented by: Enoxaparin Sodium (Enoxaparin 40 Mg/0.4 Ml Syringe) 40 mg SQ DAILY [facility] Last Admin: 07/20/21 07:47 Dose: 40 mg Documented by: Folic Acid (Folic Acid 1 Mg Tablet) 1 mg PO DAILY [facility] Last Admin: 07/20/21 07:48 Dose: 1 mg Documented by: Gabapentin (Gabapentin 300 Mg Capsule) 300 mg PO QPM [facility] Last Admin: 07/20/21 20:34 Dose: 300 mg Documented by: Iron Carb/Multivit/[employer]/Folic Acid (Multivit,Ther Iron,Ca,Fa & Min 1 Tablet) 1 tab PO DAILY [facility] Last Admin: 07/20/21 07:48 Dose: 1 tab Documented by: Lorazepam (Lorazepam 2 Mg/Ml Vial) 0 mg IV Q2-4HP PRN; Protocol PRN Reason: Alcohol Withdrawal Last Admin: 07/19/21 20:53 Dose: 1 mg Documented by: Metoprolol Succinate (Metoprolol Succinate 25 Mg Tab.Xl.24h) 25 mg PO QPM [facility] Last Admin: 07/20/21 20:34 Dose: 25 mg Documented by: Pantoprazole Sodium (Pantoprazole 40 Mg Tablet) 40 mg PO QDAY [facility] Last Admin: 07/20/21 07:48 Dose: 40 mg Documented by: Senna (Sennosides 1 Tablet) 2 tab PO HS [facility] Last Admin: 07/20/21 20:30 Dose: Not Given Documented by: Sodium Chloride (0.9 % Sodium Chloride 10 Ml Syringe) 10 ml IV Q8 [facility] Last Admin: 07/21/21 04:31 Dose: 10 ml Documented by: Thiamine HCl (Thiamine 100 Mg Tablet) 100 mg PO DAILY [facility] Last Admin: 07/20/21 07:48 Dose: 100 mg Documented by: A/P Narrative A/P Narrative: A: *Alcohol withdrawal: *Alcohol abuse: *Acute hyponatremia: 2/2 above, improved *Electrolyte d/o(hypokalemia): 2/2 above *Acute dehydration: improved *Generalized weakness: *Fatty Liver: 2/2 above *Anxiety/depression: *HTN/HLD: *GERD: P: -CIWA, vitamins, benzo -Replete electrolytes -f/u sodium -IVF d/c -restart home Lasix -Continue home CBB/BB -CM for placement needs -Alcohol cessation counseling -Referral to follow-up with Dr. Johnson outpt -ppx: lovenox /Home PPI Time Spent With Patient Time: Total time spent is greater than 50% in coordination of care (as documented) at patient's floor/unit and/or counseling patient: Total time spent with greater than 50% in coordination of care (as documented) at patient's floor/unit and/or counseling patient:: 25 - 35 minutes
[2021-07-21] MEDS: DILTIAZEM 240 MG CAP.XL.24H PO SCH (08:55)
[2021-07-21] MEDS: DOCUSATE SODIUM 100 MG CAPSULE PO SCH ×2 (08:56→21:43)
[2021-07-21] MEDS: busPIRone 5 MG TABLET PO SCH ×2 (08:56→21:44)
[2021-07-21] MEDS: FOLIC ACID 1 MG TABLET PO SCH (08:56)
[2021-07-21] MEDS: THIAMINE 100 MG TABLET PO SCH (08:57)
[2021-07-21] MEDS: MULTIVIT,THER IRON,CA,FA & MIN 1 TABLET PO SCH (08:57)
[2021-07-21] MEDS: PANTOPRAZOLE 40 MG TABLET PO SCH (08:57)
[2021-07-21] MEDS: ENOXAPARIN 40 MG/0.4 ML SYRINGE SQ SCH (08:57)
--- NOTE | 2021-07-21 10:06 | Discharge Summary ---
Discharge Provider Provider Patient information: Note initiated : 07/21/21 at 10:04 am Service Date, if different from initiated Date: [] Patient: Arya Mercado 66 y/o F admitted on 07/18/21 for weakness. Chief Complaint: [] Date of admission: 07/18/21 22:43 Discharge date: 07/22/21 Primary care physician: Chan Hanna MD Consults: 07/18/21 Consult to Physician [CONS] Stat Comment: Consulting Provider: Duarte Lugo Reason For Exam: Physician to Consult Discharge Meds Discharge Medications Home Medications atorvastatin 10 mg tablet 1 tab PO QPM 07/19/21 [History Confirmed 07/19/21 Last Taken 07/17/21 20:00] buspirone 7.5 mg tablet 1 tab PO BID 07/19/21 [History Confirmed 07/19/21 Last Taken 07/18/21 07:00] diltiazem HCl 240 mg capsule,extended release 24 hr 1 cap PO QDAY 07/19/21 [History Confirmed 07/19/21 Last Taken 07/18/21 07:00] duloxetine 60 mg capsule,delayed release 1 cap PO QDAY 07/19/21 [History Confirmed 07/19/21 Last Taken 07/18/21 07:00] ergocalciferol (vitamin D2) 1,250 mcg (50,000 unit) capsule 1 cap PO 2-3XW 07/19/21 [History Confirmed 07/19/21 Last Taken Unknown] furosemide 20 mg tablet 2 tab PO QDAY 07/19/21 [History Confirmed 07/19/21 Last Taken 07/18/21 07:00] gabapentin 300 mg capsule 1 cap PO QPM 07/19/21 [History Confirmed 07/19/21 Last Taken 07/17/21 20:00] metoprolol succinate 25 mg tablet,extended release 24 hr 1 tab PO QPM 07/19/21 [History Confirmed 07/19/21 Last Taken 07/17/21 20:00] pantoprazole 40 mg tablet,delayed release 1 tab PO QDAY 07/19/21 [History Confirmed 07/19/21 Last Taken 07/18/21 07:00] potassium chloride 10 mEq tablet,extended release 1 tab PO QDAY 07/19/21 [History Confirmed 07/19/21 Last Taken 07/18/21 07:00] ipratropium 20 mcg-albuterol 100 mcg/actuation mist for inhalation 1 puff INHALATION QID #4 g 07/22/21 [Rx Last Taken Unknown] COURSE Hospital Course Hospital course: Principal diagnosis: HypoNa, EtOH withdrawal Interval history: History of present illness: Ms. Mercado is a 66 year old F with a past medical history significant for EtOH abuse, hypertension, hyperlipidemia, neuropathy who presents to the hospital with generalized weakness in the setting of alcoholism. The patient's niece was at the bedside to give the majority of the history. The patient was somnolent, tremulous, and has not been eating or drinking. She is quite debilitated and there is concerns for failure to thrive. On arrival, she was hemodynamically stable and afebrile. Labs revealed a sodium of 122, K of 3.2, AST of 173, and ALT of 87. Blood alcohol level was 0.028. The patient was hospitalized for further management and evaluation of her electrolyte derangements and the possibility of alcohol withdrawal. It is unclear at this time whether patient has intentions of alcohol cessation. 07/19 The patient was admitted last night, and she is somewhat confused and somnolent this AM. 07/20 Patient did get IV Ativan last night and oral Librium this morning for alcohol withdrawal. Niece at bedside. Sodium improved. 07/21 Patient doing better today. Does have cough. Is willing to follow-up with Dr. Johnson, needs SNF placement. Required Librium overnight for withdrawals. 07/22 Patient calm sitting in breakfast does have mild hand tremors likely from chronic etoh, no acute issues. Patient will likely need placement. Continue PT OT. Has Anxiety will monitor for that. A: *Alcohol withdrawal: *Alcohol abuse: *Acute hyponatremia: 2/2 above, improved *Electrolyte d/o(hypokalemia): 2/2 above *Acute dehydration: improved *Generalized weakness: *Fatty Liver: 2/2 above *Anxiety/depression: *HTN/HLD: *GERD: *Tobacco abuse: P: -Alcohol cessation counseling -Smoking cessation counseling -Referral to follow-up with Dr. Johnson outpt Discharge diagnosis: Alcohol abuse and withdrawal acute hyponatremia electrolyte disorder dehydr Secondary discharge diagnosis: Fatty liver anxiety depression hypertension GERD tobacco abuse Time Spent with Patient Time attestation: Total time spent providing and/or coordinating discharge services: Time spent: Greater than 30 minutes EXAM Constitutional Vitals: Temp Pulse Resp BP Pulse Ox 97.3 F 82 20 111/73 96 07/21/21 03:21 07/21/21 03:21 07/21/21 03:21 07/21/21 03:21 07/21/21 03:21 Discharge Plan Patient/Caregiver Discharge Instructions Activity: increase activity as tolerated Diet: Regular Diet Prescriptions: Continued atorvastatin 10 mg tablet 1 tab PO QPM 0RF buspirone 7.5 mg tablet 1 tab PO BID 0RF diltiazem HCl 240 mg capsule,extended release 24hr 1 cap PO QDAY 0RF potassium chloride 10 mEq tablet extended release 1 tab PO QDAY 0RF pantoprazole 40 mg tablet,delayed release (DR/EC) 1 tab PO QDAY 0RF gabapentin 300 mg capsule 1 cap PO QPM 0RF furosemide 20 mg tablet 2 tab PO QDAY 0RF metoprolol succinate 25 mg tablet extended release 24 hr 1 tab PO QPM 0RF ergocalciferol (vitamin D2) 1,250 mcg (50,000 unit) capsule 1 cap PO 2-3XW 0RF duloxetine 60 mg capsule,delayed release(DR/EC) 1 cap PO QDAY 0RF ipratropium-albuterol 20-100 mcg/actuation Mist 1 puff INHALATION QID Qty: 4 0RF Rx Instructions: space evenly during waking hours Follow Up Plan Follow up with: Meenu Johnson DO [Physician] - Chan Hanna MD [Primary Care Provider] - Patient Disposition: Xfer SNF Prognosis: Fair Rehab Potential: Fair I certify that the patient requires SNF services: Yes Overall status at discharge: patient is progressing back to baseline Discharge Orders: Discharge Order (Routine); Ordered 07/22/21 Ordered By: Eusebio Reza
[2021-07-21] MEDS ORDERED: BENZONATATE 100 MG CAPSULE PO PRN (10:07)
[2021-07-21] MEDS: FUROSEMIDE 40 MG TABLET PO SCH (10:21)
[2021-07-21] MEDS: NICOTINE 21 MG PATCH TOPICAL SCH (10:21)
--- NOTE | 2021-07-21 11:39 | EKG ---
[facility] Test Date: 2021-07-18 Pat Name: Arya Mercado Department: ED Room: Gender: Female Photo Producer: : [id number] Requested By: Kendrick Thomason Order Number: [id number] Reading MD: Fernando Navas M.D. Measurements Intervals [place] Rate: 104 P: 78 SD: 123 QRS: 44 QRSD: 90 T: -34 QT: 397 QTc: 523 Interpretive Statements Sinus tachycardia LAE, consider biatrial enlargement Borderline repolarization abnormality Prolonged QT interval Electronically Signed On 07-21-2021 11:39:10 PDT by Fernando Navas M.D. /[id number]
--- NOTE | 2021-07-21 11:39 | EKG ---
[facility] Test Date: 2021-07-18 Pat Name: Arya Mercado Department: ED Room: Gender: Female Embedded Systems Software Developer: : [id number] Requested By: Kendrick Thomason Order Number: [id number] Reading MD: Fernando Navas M.D. Measurements Intervals [place] Rate: 109 P: 71 IA: 119 QRS: 47 QRSD: 106 T: 15 QT: 369 QTc: 498 Interpretive Statements Sinus tachycardia Atrial premature complex prolonged QT interval Electronically Signed On 07-21-2021 11:38:55 PDT by Fernando Navas M.D. /[id number]
[2021-07-21] MEDS ORDERED: ATORVASTATIN 10 MG TABLET PO SCH (21:00)
[2021-07-21] MEDS: GABAPENTIN 300 MG CAPSULE PO SCH (21:43)
[2021-07-21] MEDS: SENNOSIDES 1 TABLET PO SCH (21:43)
[2021-07-21] MEDS: METOPROLOL SUCCINATE 25 MG TAB.XL.24H PO SCH (21:45)
[2021-07-22] MEDS: 0.9 % SODIUM CHLORIDE 10 ML SYRINGE IV SCH (05:58)
[2021-07-22] MEDS ORDERED: LORazepam 2 MG/ML VIAL IV PRN (07:33)
--- NOTE | 2021-07-22 08:39 | Internal Med Progress Note ---
SUBJECTIVE Subjective Patient information: Note initiated : 07/22/21 at 8:37 am Service Date, if different from initiated Date: [] Patient: Arya Mercado 66 y/o F admitted on 07/18/21 for weakness. Chief Complaint: [] Principal diagnosis: HypoNa, EtOH withdrawal Interval history: History of present illness: Ms. Mercado is a 66 year old F with a past medical history significant for EtOH abuse, hypertension, hyperlipidemia, neuropathy who presents to the hospital with generalized weakness in the setting of alcoholism. The patient's niece was at the bedside to give the majority of the history. The patient was somnolent, tremulous, and has not been eating or drinking. She is quite debilitated and there is concerns for failure to thrive. On arrival, she was hemodynamically stable and afebrile. Labs revealed a sodium of 122, K of 3.2, AST of 173, and ALT of 87. Blood alcohol level was 0.028. The patient was hospitalized for further management and evaluation of her electrolyte derangements and the possibility of alcohol withdrawal. It is unclear at this time whether patient has intentions of alcohol cessation. 07/19 The patient was admitted last night, and she is somewhat confused and somnolent this AM. 07/20 Patient did get IV Ativan last night and oral Librium this morning for alcohol withdrawal. Niece at bedside. Sodium improved. 07/21 Patient doing better today. Does have cough. Is willing to follow-up with Dr. Johnson, needs SNF placement. Required Librium overnight for withdrawals. 07/22 Patient calm sitting in breakfast does have hand tremors. Patient will likely need placement. Continue PT OT. Has Anxiety will monitor for that. Review of Systems: denies headache/fever/chills/nausea/vomiting/chest or abdominal pain/dyspnea/diarrhea. Otherwise see above. Constitutional Vitals: Vital Signs Temp Pulse Resp BP Pulse Ox 97.5 F 76 18 106/67 97 07/22/21 06:47 07/22/21 06:47 07/22/21 06:47 07/22/21 06:47 07/22/21 06:47 Period Temp Pulse Resp BP Sys/Babin Pulse Ox Last 24 Hr 97.3 F-98.0 F 76-91 - 103-123/61-70 94-97 Intake and Output 07/21/21 07/22/21 07/22/21 21:59 05:59 13:59 Intake Total 720 500 Output Total 4 279 Balance 716 221 Weight 81.278 kg Intake & Output: Intake & Output 07/21/21 07/22/21 07/22/21 21:59 05:59 13:59 Intake Total 720 500 Output Total 4 279 Balance 716 221 Weight 81.278 kg Intake: Oral 720 500 Output: Void Amount 275 # of times incontinent of urine 4 4 Other: Meal Dinner Percent of Meal Consumed 100% Urine Appearance Clear Urine Color Bright Yellow Urine Odor Normal Stool Size Moderate Small Stool Color Brown Brown Stool Consistency Soft Soft Formed # Voids 4 # Bowel Movements 1 Exam: General: awake, No acute Distress Eyes/N/T: EOMI, Head/Neck: neck supple, CV: RRR, No murmurs, normal s1/s2 Pulm: Clear b/l, no wheezing/rhonchi/rales Abd: soft, nontender, +BS x4 Ext: no clubbing/cyanosis/edema Neuro: Alert and no focal deficits , moves all extremities, hand tremors mild Skin: warm/dry OBJ DATA Labs CBC & Chem 7: 07/18/21 20:42 07/20/21 05:12 Labs: Abnormal Lab Results 07/20/21 07/20/21 07/19/21 05:12 05:12 17:10 PT 11.8 L INR 0.8 L Sodium 129 L Anion Gap 5.0 L BUN 5 L 6 L Creatinine 0.3 L 0.3 L Calcium 7.9 L 7.7 L GGT 602 H AST 35 H Alkaline Phosphatase 291 H Lactate Dehydrogenase 253 H Total Protein 4.8 L Albumin 2.4 L Meds: Medications Atorvastatin Calcium (Atorvastatin 10 Mg Tablet) 10 mg PO QPM [facility] Last Admin: 07/21/21 21:45 Dose: 10 mg Documented by: Benzonatate (Benzonatate 100 Mg Capsule) 200 mg PO TIDP PRN PRN Reason: Cough Last Admin: 07/21/21 10:25 Dose: 200 mg Documented by: Buspirone HCl (Buspirone 5 Mg Tablet) 7.5 mg PO BID [facility] Last Admin: 07/21/21 21:44 Dose: 7.5 mg Documented by: Chlordiazepoxide HCl (Chlordiazepoxide 25 Mg Capsule) 25 mg PO Q6HP PRN PRN Reason: Alcohol Withdrawal Last Admin: 07/21/21 21:45 Dose: 25 mg Documented by: Diltiazem HCl (Diltiazem 240 Mg Cap.Xl.24h) 240 mg PO QDAY [facility] Last Admin: 07/21/21 08:55 Dose: 240 mg Documented by: Docusate Sodium (Docusate Sodium 100 Mg Capsule) 100 mg PO BID [facility] Last Admin: 07/21/21 21:43 Dose: 100 mg Documented by: Duloxetine HCl (Duloxetine 30 Mg Capsule) 60 mg PO DAILY [facility] Enoxaparin Sodium (Enoxaparin 40 Mg/0.4 Ml Syringe) 40 mg SQ DAILY [facility] Last Admin: 07/21/21 08:57 Dose: 40 mg Documented by: Folic Acid (Folic Acid 1 Mg Tablet) 1 mg PO DAILY [facility] Last Admin: 07/21/21 08:56 Dose: 1 mg Documented by: Furosemide (Furosemide 40 Mg Tablet) 40 mg PO DAILY [facility] Last Admin: 07/21/21 10:21 Dose: 40 mg Documented by: Gabapentin (Gabapentin 300 Mg Capsule) 300 mg PO QPM [facility] Last Admin: 07/21/21 21:43 Dose: 300 mg Documented by: Iron Carb/Multivit/Ethnic Origins Teacher/Folic Acid (Multivit,Ther Iron,Ca,Fa & Min 1 Tablet) 1 tab PO DAILY [facility] Last Admin: 07/21/21 08:57 Dose: 1 tab Documented by: Lorazepam (Lorazepam 2 Mg/Ml Vial) 0.5 mg IV Q4-6HP PRN PRN Reason: ANXIETY/SEDATION Metoprolol Succinate (Metoprolol Succinate 25 Mg Tab.Xl.24h) 25 mg PO QPM [facility] Last Admin: 07/21/21 21:45 Dose: 25 mg Documented by: Nicotine (Nicotine 21 Mg Patch) 21 mg TOPICAL DAILY@1000 [facility] Last Admin: 07/21/21 10:21 Dose: 21 mg Documented by: Pantoprazole Sodium (Pantoprazole 40 Mg Tablet) 40 mg PO QDAY [facility] Last Admin: 07/21/21 08:57 Dose: 40 mg Documented by: Senna (Sennosides 1 Tablet) 2 tab PO HS [facility] Last Admin: 07/21/21 21:43 Dose: 2 tab Documented by: Sodium Chloride (0.9 % Sodium Chloride 10 Ml Syringe) 10 ml IV Q8 [facility] Last Admin: 07/22/21 05:58 Dose: 10 ml Documented by: Thiamine HCl (Thiamine 100 Mg Tablet) 100 mg PO DAILY [facility] Last Admin: 07/21/21 08:57 Dose: 100 mg Documented by: A/P Narrative A/P Narrative: A: *Alcohol withdrawal: *Alcohol abuse: *Acute hyponatremia: 2/2 above, improved *Electrolyte d/o(hypokalemia): 2/2 above *Acute dehydration: improved *Generalized weakness: *Fatty Liver: 2/2 above *Anxiety/depression: *HTN/HLD: *GERD: P: -CIWA, vitamins, benzo -Replete electrolytes -restarted home Lasix -Continue home CBB/BB -CM for placement needs -Alcohol cessation counseling -Referral to follow-up with Dr. Johnson outpt -ppx: lovenox /Home PPI Time Spent With Patient Time: Total time spent is greater than 50% in coordination of care (as documented) at patient's floor/unit and/or counseling patient: Total time spent with greater than 50% in coordination of care (as documented) at patient's floor/unit and/or counseling patient:: 25 - 35 minutes
[2021-07-22] MEDS ORDERED: DULoxetine 30 MG CAPSULE PO SCH (09:00)
[2021-07-22] MEDS: ENOXAPARIN 40 MG/0.4 ML SYRINGE SQ SCH (09:08)
[2021-07-22] MEDS: DOCUSATE SODIUM 100 MG CAPSULE PO SCH (09:08)
[2021-07-22] MEDS: busPIRone 5 MG TABLET PO SCH (09:09)
[2021-07-22] MEDS: PANTOPRAZOLE 40 MG TABLET PO SCH (09:09)
[2021-07-22] MEDS: MULTIVIT,THER IRON,CA,FA & MIN 1 TABLET PO SCH (09:09)
[2021-07-22] MEDS: FOLIC ACID 1 MG TABLET PO SCH (09:09)
[2021-07-22] MEDS: THIAMINE 100 MG TABLET PO SCH (09:09)
[2021-07-22] MEDS: FUROSEMIDE 40 MG TABLET PO SCH (09:09)
[2021-07-22] MEDS: DILTIAZEM 240 MG CAP.XL.24H PO SCH (09:30)
[2021-07-22] MEDS ORDERED: IPRATROPIUM/ALBUTEROL SULFATE 1 PUFF INHALER INH PRN (09:55)
[2021-07-22] MEDS: NICOTINE 21 MG PATCH TOPICAL SCH (11:07)
== END 2021-07-22 14:45 | DRG 897 ==
LOC: ED 19:21 → ICU 22:43 → MEDSUR 07-20 22:44
PROVIDERS: ADMIT Student in an Organized Health Care Education/Training Program; ATTEND Internal Medicine